=== PATIENT | female | born 1995 | race Caucasian/White ===

== ENCOUNTER 2017-03-29 11:40 | Emergency (ER) | payer SELFPAY ==
[~2017-03-29] VITALS: Ht 167.6 cm; Wt 65.4 kg
[2017-03-29 11:47] VITALS: BP 112/72
--- NOTE | 2017-03-29 13:25 | NUR ---
Patient ambulated to [facility]. RN evaluating patient.
--- NOTE | 2017-03-29 13:39 | NUR ---
PATIENT WITH FAMILY MEMBER. NO N/V/DIARRHEA AT THIS TIME
--- NOTE | 2017-03-29 14:23 | NUR ---
Patient transferred to bed 1 for further care. RN evaluating patient at bedside.
[2017-03-29] MEDS ORDERED: ONDANSETRON 4 MG/2 ML VIAL IVP ONE (14:40)
[2017-03-29] MEDS ORDERED: NACL 0.9% 2,000 ML IV ONE ×2 (14:40→18:00)
[2017-03-29] MEDS ORDERED: MORPHINE SULFATE 2 MG/ML SYR IVP ONE (14:40)
[2017-03-29 15:27] LABS: HEMATOCRIT 45.1 % (36-48); HEMOGLOBIN 15.1 g/dL (12.0-16.0); MEAN CORPUSCULAR HEMOGLOBIN 30 pg (27-31); MEAN CORPUSCULAR HGB CONC 34 g/dL (33-37); MEAN CORPUSCULAR VOLUME 89 fL (80-94); PLATELET COUNT (AUTO) 262 K/uL (140-450); RED BLOOD CELL COUNT(AUTO) 5.04 MIL/uL (4.20-5.40); RED CELL DISTRIBUTION WIDTH 13.4 % (11.6-13.7); WHITE BLOOD COUNT (AUTO) 9.4 K/uL (4.5-11.0)
[2017-03-29 15:35] LABS: ANION GAP 17.1 (8-16); CARBON DIOXIDE 26.1 mmol/L (21-32); CREATININE 0.8 mg/dL (0.6-1.3); POTASSIUM 4.2 mmol/L (3.5-5.1)
[2017-03-29 15:41] LABS: EOSINOPHILS % (MANUAL) 1 % (0-4); LYMPHOCYTES % (MANUAL) 2 % (20-46); MONOCYTES % (MANUAL) 3 % (5-12); TOTAL BILIRUBIN 0.5 mg/dL (0.0-1.0)
[2017-03-29 15:42] LABS: ALBUMIN 3.4 g/dL (3.4-5.0); MAGNESIUM 1.7 mg/dL (1.8-2.4); PHOSPHORUS 4.6 mg/dL (2.5-4.9)
--- NOTE | 2017-03-29 16:21 | NUR ---
Patient taken to CT scan via gurney by [email or web address].
[2017-03-29 16:24] LABS: APPEARANCE,URINE CLEAR (CLEAR); BILIRUBIN,URINE NEGATIVE (NEGATIVE); BLOOD, URINE NEGATIVE (NEGATIVE); COLOR,URINE YELLOW (YELLOW); LEUKOCYTE ESTERASE ,URINE NEGATIVE (NEGATIVE); NITRITE, URINE NEGATIVE (NEGATIVE); UGLUCOSE NEGATIVE (NEGATIVE)
--- NOTE | 2017-03-29 16:25 | NUR ---
PT TAKEN OFF THE UNIT TO CT SCAN VIA GURNEY BY [employer]
[2017-03-29 19:24] VITALS: BP 113/59
== END 2017-03-29 19:24 | disposition home or self-care (01) ==
LOC: MED 11:40
DX: R11.2 Nausea with vomiting, unspecified (principal); R10.30 Lower abdominal pain, unspecified; R19.7 Diarrhea, unspecified
CPT/HCPCS: 36415; 71045; 74177; 80053; 81003; 81025; 83690; 83735; 84100; 85025; 96361; 96374; 96375; 99285; J2270; J2405; J7030; Q0092; Q9967